=== PATIENT | female | born 1995 | race Two or more races ===

== ENCOUNTER 2025-02-04 10:35 | Observation (INO) | payer MEDICAID ==
[~2025-02-04] VITALS: Ht 157.5 cm; Wt 104.3 kg
[2025-02-04] MEDS ORDERED: LACTATED RINGER'S 1,000 ML IV ONE (11:45)
[2025-02-04] MEDS: TERBUTALINE SULFATE 1 MG/ML 1ML VIAL SC SCH (12:18)
[2025-02-04] MEDS: BETAMETHASONE ACET (30mg/5ml) 5ml Vial 6mg/ml IM ONE (12:23)
[2025-02-04] MEDS ORDERED: PREN1TAB71 OR (12:57)
[2025-02-04] MEDS ORDERED: ASPI-543 PO (12:57)
--- NOTE | 2025-02-05 06:22 | DVHDS2 ---
Discharge Summary Date of Admission Feb 04, 2025 at 10:35 Date of Discharge: Feb 04, 2025 Admitting Diagnosis 26 wek rule out labor Brief Hx & Hospital Course: rule up labor Condition at Discharge: Good Final Diagnosis/Problems List NO labor , reasuring fht Discharge Disposition: Home Discharge Instruct/Medications Diet: Regular Activity: No Restrictions, As Tolerated Activity comment: kick counts labor precautions Follow Up/Referral: as scheduled or prn Discharge Statement: "Patient was advised to return to the ER or call 911 if any headaches, dizziness, shortness of breath, chest pain, abdominal pain, bleeding, fevers, or worsening of medical condition. Patient was counseled about treatment plan, medications, possible side effects, patientverbalized understanding. All questions were answered to the best of my ability. This discharge took greater then 30 minutes in planning, reviewing documentation, counseling the patient, and discussing with other team members." ASSESSMENT ASSESSMENT Assessment Visit Coding OBGYN Date of Service: Feb 04, 2025 Billing Provider: MAYO ANDRADE DO KILN FIRER Common Visit Codes: 42143-IZQ/OBS SAME DATE (LOW), 71383-XTM/OBS SAME DATE (MOD), 85078-KJX/OBS SAME DATE (HIGH) KILN FIRER Procedure Codes: 48383-41- NON-STRESS TEST MAYO ANDRADE DO Feb 05, 2025 06:22
== END 2025-02-04 13:20 | disposition home or self-care (01) ==
LOC: UNDOADMOB 10:35 → LDRP 10:35 → UNDODISOB 13:20
PROVIDERS: ADMIT Obstetrics & Gynecology; ATTEND Obstetrics & Gynecology
DX: O62.9 Abnormality of forces of labor, unspecified (principal); Z98.890 Other specified postprocedural states; Z79.899 Other long term (current) drug therapy; Z3A.26 26 weeks gestation of pregnancy
CPT/HCPCS: 81002; 96360; 96361; 96372; G0378; J0702; J3105; 59025

== ENCOUNTER 2025-02-05 12:45 | Observation (INO) | payer MEDICAID ==
[~2025-02-05] VITALS: Ht 157.5 cm; Wt 97.5 kg
[~2025-02-05 12:45] MED LIST: ASPI-543 PO; PREN1TAB71 OR
[2025-02-05] MEDS: BETAMETHASONE ACET (30mg/5ml) 5ml Vial 6mg/ml IM ONE (13:47)
--- NOTE | 2025-02-05 14:21 | DVHDS2 ---
Physician Discharge Progress N Final Diagnosis: second dose of betamethasone Operations or Procedures: Operations or Procedures 29yo IUP@26.2wks, +FM, denies UCs/VB PNC with Dr. Karl Alba in [place], high risk for hx of placental abruption with previous . VSS NST reactive NO UCs ON toco second dose of betamethasone 12mg IM given PTL precautions reviewed. Pt instructed to notify primary OB that she had PTL episode and was given 2 d oses of betamethasone at her next appt on 02/06/25. Dr. Dueñas consulted, agrees with POC. Condition on Discharge: Stable Disposition: Home Discharge Instructions: Diet: Regular Activity: See Comment Activity comment: pelvic rest Medications: see med list Follow Up Care: Specialist: f/u with primary OB on 02/06/25 Discharge Statement: "Patient was advised to return to the ER or call 911 if any headaches, dizziness, shortness of breath, chest pain, abdominal pain, bleeding, fevers, or worsening of medical condition. Patient was counseled about treatment plan, medications, possible side effects, patientverbalized understanding. All questions were answered to the best of my ability. This discharge took greater then 30 minutes in planning, reviewing documentation, counseling the patient, and discussing with other team members." Visit Coding OBGYN Date of Service: Feb 05, 2025 Billing Provider: JOS FREITAS CNM DIRECT MAIL MANAGER Common Visit Codes: 58330-QLFHSMI OBS CARE (HIGH) DIRECT MAIL MANAGER Procedure Codes: 80845-25- NON-STRESS TEST JOS FREITAS CNM Feb 05, 2025 14:21
== END 2025-02-05 14:27 | disposition home or self-care (01) ==
LOC: UNDOADMOB 12:45 → LDRP 12:45 → UNDODISOB 14:27
PROVIDERS: ADMIT Obstetrics & Gynecology; ATTEND Obstetrics & Gynecology
DX: O62.9 Abnormality of forces of labor, unspecified (principal); Z98.890 Other specified postprocedural states; Z79.899 Other long term (current) drug therapy; Z3A.26 26 weeks gestation of pregnancy
CPT/HCPCS: 81002; 94760; 96372; G0378; J0702; 59025